=== PATIENT | male | born 1945 | race Caucasian/White ===

== ENCOUNTER 2017-04-30 21:06 | Emergency (ER) | payer MEDICARE, OTHER ==
[~2017-04-30] VITALS: Ht 188 cm; Wt 117.9 kg
[2017-04-30 21:20] VITALS: BP 144/63
[2017-04-30] MEDS ORDERED: TETRACAINE 0.5% OPHTH SOLUTION 4ML BOTTLE. OD ONE (21:45)
--- NOTE | 2017-05-01 00:07 | PHYS DOC ---
General Chief Complaint: FOREIGN BODY Stated Complaint: BUG IN EAR Time Seen by MD: 23:41 Source: patient Exam Limitations: no limitations Problems: History of Present Illness Initial Comments Patient is a 71-year-old male who comes in the ED complaining of [place] in right ear. Patient states that he was walking under a light and in his peripheral vision he saw a large moth fly towards the right side of his head. He felt the insect injured his right ear and since that time has felt the insect fluttering and moving. The patient complains of severe discomfort his tried flushing it out with water at home to no avail. His tetanus is up-to-date he is requesting immediate removal of the insect in his right ear. Timing/Duration: this evening Severity: severe Location: ear (R) Prearrival Treatment: other Modifying Factors: improves with other Associated Symptoms: change in hearing, other Allergies: Coded Allergies: ibuprofen (Verified Allergy, Unknown, 04/30/17) Past Medical History Medical History: diabetes (COPD) Surgical History: noncontributory Social History Smoker: quit greater than 1 year Alcohol: none Drugs: none Constitutional: denies chills, denies fever Eyes: denies blindness, denies blurred vision Ears: see HPI Nose: denies clots, denies congestion Throat: denies pain, denies discharge (physical discharge I just restarted slacking irregularity what), denies neck stiffness Respiratory: denies cough, denies shortness of breath Cardiovascular: denies chest pain, denies palpitations, denies syncope Gastrointestinal: denies diarrhea, denies nausea, denies vomiting Musculoskeletal: denies back pain, denies joint swelling, denies neck pain Neurological: denies headache, denies numbness, denies paresthesia Physical Exam General Appearance: WD/WN, moderate distress Ears: right ear other (live moth active inpatient right ear canal adjacent to his tympanic membrane, scant bleeding noted at the 6 o'clock position no TM rupture apparent) Nose: normal inspection Mouth/Throat: normal mouth inspection Neck: non-tender, supple Cardiovascular/Respiratory: normal peripheral pulses, no respiratory distress 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 Tetracaine drops applied to the right ear on arrival for analgesia and utilization of the insect. Ear lavage unsuccessful at the foreign body removal. Once alligator forceps were obtained for attempts were made to remove the insect. On the initial attempt half of the head and one intended was removed and the insect change position from a horizontal 2 vertical within the ear canal. On the fourth attempt the insect was removed by me with alligator forceps, the entire remainder of the insect appears to have been removed and was placed in a specimen container as the patient wishes to take at home. The area was once again lavage and I rechecked it, I do not see any persistent foreign bodies there was some dried blood inferiorly. No TM rupture apparent no hearing loss. Departure Time of Disposition: 00:05 Disposition: 01 HOME, SELF-CARE Diagnosis: otic foreign body (moth) Condition: IMPROVED Patient Instructions: Ear Foreign Body, [id number] Additional Instructions: OTC tylenol/ibuprofen as needed. Rx: floxin otic, use as directed. Follow up with your doctor Tuesday for recheck and further evaluation/treatment as needed. Return to ED with new or changing symptoms. ADOLFO ABAD DO May 01, 2017 00:07
[2017-05-01] MEDS ORDERED: OFLOXACIN 0.3% OTIC SOLUTION 5ML BOTTLE. ONE (00:16)
[2017-05-01] MEDS ORDERED: OFLOXACIN 0.3% OTIC SOLUTION 5ML BOTTLE. AD ONE (00:30)
== END 2017-05-01 00:23 | disposition home or self-care (01) ==
LOC: ER 21:06
DX: T16.1XXA Foreign body in right ear, initial encounter (principal); J44.9 Chronic obstructive pulmonary disease, unspecified; E11.9 Type 2 diabetes mellitus without complications; Z88.6 Allergy status to analgesic agent; Z87.891 Personal history of nicotine dependence; X58.XXXA Exposure to other specified factors, initial encounter; Y93.01 Activity, walking, marching and hiking; Y99.8 Other external cause status; Y92.89 Other specified places as the place of occurrence of the external cause
CPT/HCPCS: 69200; 99284-25

== ENCOUNTER → 2021-04-01 | Day surgery (SDC) | payer OTHER ==
[~2021-04-01] MED LIST: ALPR0.5T6 PO; CARB1DRO20 OP; CRESTOR40 MG PO; CYAN10002 IM; DICL100G28 TP; GABA-586 PO; INSU100C4 SQ; LEVO5TAB2 PO; LOSA100T14 PO; MELO15TA23 PO; METF500T16 PO; METO50TA29 PO; MONT10TA80 PO; OMEG1CAP50 PO; PIOG30TA41 PO; PROAIR RESPICL90 MCG IH; SEMA1PEN3 SQ; TAMS0.4C97 PO; ZOLP5TAB5 PO; mometasone furoate INH
[2021-04-01 14:51] VITALS: BP 132/64
== END ==
LOC: SURG 14:42
PROVIDERS: ATTEND Anesthesiology
DX: M47.816 Spondylosis without myelopathy or radiculopathy, lumbar region (principal); M54.16 Radiculopathy, lumbar region; M54.5 Low back pain; I10 Essential (primary) hypertension; J44.9 Chronic obstructive pulmonary disease, unspecified; E11.51 Type 2 diabetes mellitus with diabetic peripheral angiopathy without gangrene; Z79.899 Other long term (current) drug therapy; Z98.890 Other specified postprocedural states
CPT/HCPCS: 99204; G0463

== ENCOUNTER → 2021-05-20 | Day surgery (SDC) | payer OTHER ==
[~2021-05-20] MED LIST changes: +BUPIVACAINE MPF 0.25% 10 ML VIAL. ONE; +DEXAMETHASONE SOD PHOS 10 MG/ML VIAL. ONE; +IOHEXOL 300 MG/ML 50 ML VIAL. ONE; +LIDOCAINE 1% PF 30 ML VIAL. ONE
[2021-05-20 11:33] VITALS: BP 153/74
== END | disposition home or self-care (01) ==
LOC: SURG 10:30
PROVIDERS: ATTEND Anesthesiology
DX: M54.16 Radiculopathy, lumbar region (principal); Z87.891 Personal history of nicotine dependence; Z79.84 Long term (current) use of oral hypoglycemic drugs; Z79.899 Other long term (current) drug therapy; Z88.8 Allergy status to other drugs, medicaments and biological substances
CPT/HCPCS: 64483; J1100; J3490; Q9967

== ENCOUNTER → 2021-07-08 | Day surgery (SDC) | payer MEDICARE, OTHER ==
[~2021-07-08] MED LIST changes: -BUPIVACAINE MPF 0.25% 10 ML VIAL. ONE; -DEXAMETHASONE SOD PHOS 10 MG/ML VIAL. ONE; -IOHEXOL 300 MG/ML 50 ML VIAL. ONE; -LIDOCAINE 1% PF 30 ML VIAL. ONE
[2021-07-08 13:56] VITALS: BP 147/76
== END | disposition home or self-care (01) ==
LOC: SURG 12:29
PROVIDERS: ATTEND Anesthesiology
DX: M47.816 Spondylosis without myelopathy or radiculopathy, lumbar region (principal); I10 Essential (primary) hypertension; E11.9 Type 2 diabetes mellitus without complications; J44.9 Chronic obstructive pulmonary disease, unspecified; I73.9 Peripheral vascular disease, unspecified; Z79.82 Long term (current) use of aspirin; Z79.84 Long term (current) use of oral hypoglycemic drugs; Z79.899 Other long term (current) drug therapy; Z98.890 Other specified postprocedural states; Z87.891 Personal history of nicotine dependence
CPT/HCPCS: 64493; 64494

== ENCOUNTER → 2021-07-20 | Outpatient (CLI) | payer MEDICARE, BC ==
[2021-07-08 13:56] VITALS: BP 147/76
--- NOTE | 2021-07-20 11:14 | RAD ---
EXAM: Abdomen sonogram. HISTORY: Pancreatitis. TECHNIQUE: Sonographic imaging of the abdomen was performed. COMPARISON: None. FINDINGS: The liver is enlarged. There is hepatic steatosis. No focal hepatic lesion is seen. There i s cholelithiasis. There is no evidence of cholecystitis. The kidneys are normal in size. There are mu ltiple left renal cysts, the largest of which is an exophytic cyst within the inferior kidney measuri ng 2.6 cm. There is a 1.7 cm cyst with internal echogenic foci within the lateral lower mid zone. The spleen is enlarged, measuring 13.9 cm. There are splenic granulomas. The pancreas, aorta and inferio r vena cava are obscured due to bowel gas. IMPRESSION: 1. Hepatomegaly and hepatic steatosis. 2. Suspected cholelithiasis. 3. Multiple left renal cysts measuring up to 2.6 cm. There is a suspected complicated cyst with inter nal echoes possibly due to debris measuring 1.7 cm. Sonographic follow-up in 6 months can be performe d to confirm stability. 4. Splenomegaly. 5. Obscured midline structures due to bowel gas. Electronically signed by: Elham Tim MD (07/20/2021 11:12 AM) [id number]
== END ==
LOC: US 10:30
PROVIDERS: ATTEND Specialist
DX: K76.0 Fatty (change of) liver, not elsewhere classified (principal); N28.1 Cyst of kidney, acquired; R16.2 Hepatomegaly with splenomegaly, not elsewhere classified; K80.20 Calculus of gallbladder without cholecystitis without obstruction; K85.90 Acute pancreatitis without necrosis or infection, unspecified
CPT/HCPCS: 76700

== ENCOUNTER → 2021-07-22 | Day surgery (SDC) | payer MEDICARE, OTHER ==
[2021-07-22 12:55] VITALS: BP 173/74
== END | disposition home or self-care (01) ==
LOC: SURG 12:48
PROVIDERS: ATTEND Anesthesiology
DX: M54.50 Low back pain, unspecified (principal); I10 Essential (primary) hypertension; E11.9 Type 2 diabetes mellitus without complications; J44.9 Chronic obstructive pulmonary disease, unspecified; I73.9 Peripheral vascular disease, unspecified; Z79.84 Long term (current) use of oral hypoglycemic drugs; Z79.899 Other long term (current) drug therapy; Z98.890 Other specified postprocedural states
CPT/HCPCS: 99214; G0463

== ENCOUNTER → 2021-08-24 | Outpatient (CLI) | payer MEDICARE, BC ==
[2021-07-22 12:55] VITALS: BP 173/74
--- NOTE | 2021-08-24 12:22 | RAD ---
EXAM: Abdomen CT without intravenous contrast. HISTORY: Pancreatitis. TECHNIQUE: Computed tomographic images of the abdomen were obtained without contrast. Multiplanar ref ormatting was performed. *One or more of the following individualized dose reduction techniques were utilized for this examina tion: 1. Automated exposure control. 2. Adjustment of the mA and/or kV according to patient size. 3. Use of iterative reconstruction technique. COMPARISON: None. FINDINGS: Evaluation of the lower thorax demonstrates bilateral lower lobe atelectasis or interstitia l infiltrate. There is no pleural effusion. There is cardiomegaly. There is calcification of the aort ic valve and mitral valve annulus. There are splenic and hepatic granulomas. There is a 4 mm suspecte d cyst or hemangioma within the right hepatic lobe. There is cholelithiasis. The stomach is mildly di stended with bolus. There are pancreatic calcifications due to the sequela of chronic pancreatitis. T here is no convincing acute pancreatitis. There is a 2.7 cm right adrenal nodule. There is a 2.5 cm hyperdense lesion within the posterior mid zone of the left kidney. There is a 1.7 cm cyst within the lateral lower pole of the left kidney. The re is a 7 mm exophytic lesion along the lower pole the right kidney demonstrate attenuation greater t crowe fluid. There is a 6 mL nonobstructing right renal stone. There is no hydronephrosis. There is colonic diverticulosis. There is no diverticulitis. There is a small fat-containing umbilica l hernia. There is aortic and aortic branch vessel atherosclerosis. There are degenerative changes in volving the spine. There is suspected bone demineralization. There are a few bone islands. There are osseous hemangiomas. IMPRESSION: 1. Pancreatic calcifications consistent with chronic pancreatitis. There is no convincing CT evidence of acute pancreatitis. 2. 2.7 cm right adrenal nodule, the attenuation which favors an adenoma. 3. Cholelithiasis. 4. Colonic diverticulosis. 5. Tiny suspected cyst or hemangioma within the right hepatic lobe. 6. 2.5 cm hyperdense lesion within the posterior left kidney, possibly a hemorrhagic cyst. There is a lso a suspected 1.7 cm cyst within the left kidney and possible complicated cyst within the lower jose e the right kidney. Renal sonography can be performed to exclude a solid lesion. 7. Right nephrolithiasis. 8. Bilateral lower lobe interstitial infiltrate or atelectasis. Electronically signed by: Elham Tim MD (08/24/2021 12:20 PM) [id number]
== END ==
LOC: CT 10:44
PROVIDERS: ATTEND Family Medicine
DX: K86.1 Other chronic pancreatitis (principal); K86.89 Other specified diseases of pancreas; K80.20 Calculus of gallbladder without cholecystitis without obstruction; K57.30 Diverticulosis of large intestine without perforation or abscess without bleeding; N20.0 Calculus of kidney; N28.1 Cyst of kidney, acquired; I35.8 Other nonrheumatic aortic valve disorders; I51.7 Cardiomegaly; K75.3 Granulomatous hepatitis, not elsewhere classified; K31.89 Other diseases of stomach and duodenum; N28.9 Disorder of kidney and ureter, unspecified; K42.9 Umbilical hernia without obstruction or gangrene; E27.8 Other specified disorders of adrenal gland; I70.0 Atherosclerosis of aorta; D18.09 Hemangioma of other sites; M47.817 Spondylosis without myelopathy or radiculopathy, lumbosacral region
CPT/HCPCS: 74150